=== PATIENT | male | born 1960 | race Caucasian/White ===

== ENCOUNTER 2019-03-16 19:08 | Emergency (ER) | payer BC ==
--- NOTE | 2019-03-17 01:51 | ER ---
HISTORY OF PRESENT ILLNESS: A 58-year-old male here with complaints of feeling like he has something stuck in his throat, this happened while he was eating supper. He states he first noticed that after he tried to swallow a bite of prime rib. The patient tells me he has not had any problems with breathing, but he tried to drink water a couple times and coughed it back up. The patient has not vomited. He denies any chest pain, just states that there is discomfort pointing to the lower sternal area. The patient denies any history of a similar nature. OBJECTIVE: GENERAL APPEARANCE: The patient is awake and alert. No obvious distress. VITAL SIGNS: Reviewed. Blood pressure 164/92. He is afebrile, pulse 65. HEENT: Oral mucous membranes moist. Tonsils not enlarged or injected. Pharynx not inflamed. I do not see any foreign body. LUNGS: Clear. CARDIAC: Heart sounds distinct without murmurs. SKIN: Warm and dry. INITIAL TREATMENT PLAN: We had the patient take a small sip of water, this did cause him a cough a couple of times. He then felt that things were improving after which he tried another sip of water and was able to swallow it down. This was followed by a larger swallow of water and he was able to keep that down. He states that he quickly feels that things are improving. While monitoring the patient for about 10 minutes, I had him drink 2 more small glasses of water, he was able to drink them down quickly without any discomfort or coughing. DIAGNOSIS: Foreign body to esophagus, currently resolved. TREATMENT PLAN: I advised the patient to use smaller bites and chew his food more often, eat slower, and to use enough water as needed. The patient has no further questions upon leaving the emergency room. He states he feels fine. CRS/MODL /[id number]
== END 2019-03-16 19:35 | disposition home or self-care (01) ==
LOC: LB.ED 19:08
DX: T18.128A Food in esophagus causing other injury, initial encounter (principal)
CPT/HCPCS: 99282